=== PATIENT | male | born 1980 | race African-American/Black ===

== ENCOUNTER 2017-01-12 05:59 | Emergency (ER) | payer MEDICARE, OTHER ==
[~2017-01-12] VITALS: Ht 175.3 cm; Wt 78.0 kg
[~2017-01-12 05:59] MED LIST: FLUP125P; GEMF600 PO
[2017-01-12 06:02] VITALS: BP 124/86; PULSE 64; RESP 18; TEMP 98.8; O2SAT 97
[2017-01-12] MEDS ORDERED: FLUP1INJ IM (06:07)
[2017-01-12] MEDS ORDERED: GEMF600T PO (06:07)
[2017-01-12] MEDS ORDERED: HYDR-3533 PO (06:26)
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
[2017-01-12] MEDS ORDERED: ACETAMINOPHEN/HYDROcodone 325 MG/5 MG TAB PO ONE (06:30)
== END 2017-01-12 07:03 | disposition home or self-care (01) ==
LOC: NEPC 05:59
DX: S39.012A Strain of muscle, fascia and tendon of lower back, initial encounter (principal); I10 Essential (primary) hypertension; F17.210 Nicotine dependence, cigarettes, uncomplicated; X50.0XXA Overexertion from strenuous movement or load, initial encounter; Y93.H1 Activity, digging, shoveling and raking; Y92.89 Other specified places as the place of occurrence of the external cause; Y99.8 Other external cause status
CPT/HCPCS: 99283